=== PATIENT | female | born 1985 | race Caucasian/White ===

== ENCOUNTER 2025-01-26 01:14 | Emergency (ER) | payer MEDICAID, SELFPAY ==
[~2025-01-26] VITALS: Ht 172.7 cm; Wt 84.1 kg
[2025-01-26 02:30] LABS: BASO # 0.1 10^3/uL (0.0-0.2); BASO % 0.5 % (0.0-1.0); EOS # 0.5 10^3/uL (0.0-0.5); EOS % 4.9 % (0.0-3.0); LYMPH # 1.7 10^3/uL (1.5-5.0); LYMPH % 16.6 % (24.0-44.0); MONO # 0.9 10^3/uL (0.0-0.8); MONO % 8.8 % (2.0-8.0); NEUTROPHILS # 6.9 10^3/uL (1.5-8.5); NEUTROPHILS % 68.9 % (36.0-66.0); PLATELET COUNT, AUTOMATED 211 10^3/uL (150-450)
[2025-01-26 02:55] LABS: ALT/SGPT 18 U/L (7.0-40); CALCIUM LEVEL 8.7 MG/DL (8.5-10.1); CARBON DIOXIDE LEVEL 27 MMOL/L (20-31); CHLORIDE LEVEL 104 MMOL/L (98-107); CREATININE FOR GFR 0.60 MG/DL (0.55-1.30); GLOMERULAR FILTRATION RATE > 90.0 (>60); POTASSIUM SERUM 4.1 MMOL/L (3.5-5.1); SODIUM LEVEL 139 MMOL/L (136-145)
[2025-01-26 03:46] LABS: HCG, SERUM QUALITATIVE NEGATIVE (NEGATIVE)
[2025-01-26 04:21] LABS: AMORPHOUS SEDIMENT SMALL (NEGATIVE); APPEARANCE, URINE HAZY (CLEAR); BACTERIA, URINE AUTO NEGATIVE (NEGATIVE); BILIRUBIN, URINE AUTO NEGATIVE (NEGATIVE); BLOOD, URINE BLOOD NEGATIVE (NEGATIVE); GLUCOSE, URINE (UA) AUTO NEGATIVE (NEGATIVE); KETONE, URINE AUTO TRACE mg/dL (NEGATIVE); LEUKOCYTE ESTERASE, URINE AUTO NEGATIVE (NEGATIVE); MUCUS, URINE SMALL (NEGATIVE); NITRITE, URINE AUTO NEGATIVE (NEGATIVE); PROTEIN, URINE AUTO NEGATIVE (NEGATIVE); RBC, URINE AUTO 1 /HPF (0-3); SPECIFIC GRAVITY URINE AUTO 1.025 (1.002-1.035); SQUAMOUS EPITHELIAL CELL UR AU 10 /HPF (0-6); UROBILINOGEN, URINE AUTO 0.2 mg/dL (0.0-2.0); WBC, URINE AUTO 1 /HPF (0-3)
[2025-01-26] MEDS: ONDANSETRON 4MG ORAL DISINTEGRATING TAB PO ONE (06:45)
[2025-01-26] MEDS: SUCRALFATE SUSP 1GM/10ML UD PO ONE (06:46)
[2025-01-26] MEDS: MAALOX 30 ML SUSP *UDC PO ONE (06:46)
[2025-01-26] MEDS: LIDOCAINE VISCOUS 2% SOLN 15 ML UDC PO ONE (06:46)
[2025-01-26 06:56] LABS: CK-MB VALUE MASS < 1.0 NG/ML (<3.6)
[2025-01-26 07:10] LABS: CPK CREATINE PHOSPHOKINASE 85 U/L (34-145)
[2025-01-26] MEDS ORDERED: HOME MED LIST COMPLETE! XX SCH (07:55)
[2025-01-26] MEDS: KETOROLAC 30 MG/ML 1 ML VIAL IM ONE (09:06)
[2025-01-26] MEDS: MORPHINE 4 MG/ML 1 ML VIAL IV ONE (09:54)
[2025-01-26] MEDS ORDERED: AMOX875T2 PO (10:49)
[2025-01-26] MEDS ORDERED: OXYC1TAB23 PO (10:49)
[2025-01-26 10:53] VITALS: TEMP 98.4
[2025-01-26 11:05] VITALS: BP 158/98; O2SAT 99
[2025-01-27 07:14] LABS: AST/SGOT 24 U/L (<34)
== END 2025-01-26 11:07 | disposition home or self-care (01) ==
LOC: M ED 01:14
DX: K80.00 Calculus of gallbladder with acute cholecystitis without obstruction (principal); R00.1 Bradycardia, unspecified; F17.290 Nicotine dependence, other tobacco product, uncomplicated; F12.10 Cannabis abuse, uncomplicated; Z79.2 Long term (current) use of antibiotics; Z79.899 Other long term (current) drug therapy
CPT/HCPCS: 74018; 76705; 80048; 80076; 81001; 82550; 82553; 83690; 84484; 84703; 85025; 93005; 96372; 96374; 99285; J1885

== ENCOUNTER 2025-01-28 22:11 | Emergency (ER) | payer MEDICAID, SELFPAY ==
[~2025-01-28] VITALS: Ht 172.7 cm; Wt 79.9 kg
[~2025-01-28 22:11] MED LIST: AMOX875T2 PO; OXYC1TAB23 PO
[2025-01-28 22:48] LABS: BASO # 0.0 10^3/uL (0.0-0.2); BASO % 0.2 % (0.0-1.0); EOS # 0.1 10^3/uL (0.0-0.5); EOS % 1.1 % (0.0-3.0); LYMPH # 1.0 10^3/uL (1.5-5.0); LYMPH % 8.3 % (24.0-44.0); MONO # 1.6 10^3/uL (0.0-0.8); MONO % 13.5 % (2.0-8.0); NEUTROPHILS # 9.1 10^3/uL (1.5-8.5); NEUTROPHILS % 76.3 % (36.0-66.0); PLATELET COUNT, AUTOMATED 221 10^3/uL (150-450)
[2025-01-29] MEDS: ONDANSETRON 4MG/2ML VIAL IV ONE (00:46)
[2025-01-29] MEDS: MORPHINE 4 MG/ML 1 ML VIAL IV PRN (00:47)
[2025-01-29 00:51] LABS: ALT/SGPT 271 U/L (7.0-40); AST/SGOT 107 U/L (<34); CALCIUM LEVEL 8.8 MG/DL (8.5-10.1); CARBON DIOXIDE LEVEL 22 MMOL/L (20-31); CHLORIDE LEVEL 96 MMOL/L (98-107); CREATININE FOR GFR 0.59 MG/DL (0.55-1.30); GLOMERULAR FILTRATION RATE > 90.0 (>60); POTASSIUM SERUM 4.2 MMOL/L (3.5-5.1); SODIUM LEVEL 131 MMOL/L (136-145)
[2025-01-29] MEDS ORDERED: HYDROMORPHONE HCL 0.5 MG/0.5 ML SYRINGE IV PRN (03:20)
[2025-01-29] MEDS: NS (Normal Saline) 0.9% 1,000 ML IV ONE (04:13)
[2025-01-29] MEDS: ACETAMINOPHEN *IV* 1,000 MG in IV 1 EA IV ONE (04:15)
[2025-01-29] MEDS ORDERED: PIPERACILLIN/TAZOBACTAM SOD 3.375 GM in DEXTROSE 5% (D5W) ADV/MINI-BAG 50 ML IV SCH ×2 (04:15→10:00)
[2025-01-29] MEDS: NS (Normal Saline) 0.9% 1,000 ML IV SCH (04:15)
[2025-01-29] MEDS: PIPERACILLIN/TAZOBACTAM SOD 3.375 GM in DEXTROSE 5% (D5W) ADV/MINI-BAG 50 ML IV ONE (04:15)
[2025-01-29 07:40] VITALS: BP 128/87; TEMP 97.5; O2SAT 98
== END 2025-01-29 07:52 | disposition short-term general hospital (02) ==
LOC: M ED 22:11
DX: K80.00 Calculus of gallbladder with acute cholecystitis without obstruction (principal); F17.200 Nicotine dependence, unspecified, uncomplicated; F12.10 Cannabis abuse, uncomplicated; Z79.2 Long term (current) use of antibiotics; Z79.899 Other long term (current) drug therapy
CPT/HCPCS: 76705; 80048; 80076; 83605; 83690; 84145; 85025; 87040; 96361; 96374; 96375; 99284; J0131; J2405; J2543